=== PATIENT | female | born 1975 ===

== ENCOUNTER 2018-07-20 13:30 | Inpatient (IN) | payer OTHER ==
[~2018-07-20 13:30] MED LIST: HEMATRON P.O.1 UDTAB PO; YAZ 28 TABLET1 TAB PO
[2018-07-28] MEDS ORDERED: PROFERRIN-FORT1 EACH PO (09:58)
[2018-07-28] MEDS ORDERED: ESTARYLLA1 EACH PO (09:58)
[2018-07-31] MEDS ORDERED: Tylenol #3 PO (12:58)
== END 2018-07-31 13:26 | DRG 743 ==
LOC: OB/GYN 07-28 06:00 → O/R 07-28 06:00 → OB/GYN 07-28 13:15 → SURH 07-28 13:30 → OB/GYN 07-31 13:26
PROVIDERS: ADMIT Obstetrics & Gynecology
PROC: 0TJB8ZZ Inspection of Bladder, Via Natural or Artificial Opening Endoscopic (ICD-10-PCS; 2018-07-28)
PROC: 0UT90ZZ Resection of Uterus, Open Approach (ICD-10-PCS; principal; 2018-07-28 15:00)
DX: D25.1 Intramural leiomyoma of uterus (principal); D25.2 Subserosal leiomyoma of uterus; N73.6 Female pelvic peritoneal adhesions (postinfective); N80.0 Endometriosis of uterus; N94.5 Secondary dysmenorrhea; N81.11 Cystocele, midline

== ENCOUNTER 2018-08-09 21:48 | Emergency (ER) | payer OTHER ==
[~2018-08-09] VITALS: Ht 160 cm; Wt 63.5 kg
[~2018-08-09 21:48] MED LIST changes: +ESTARYLLA1 EACH PO; +PROFERRIN-FORT1 EACH PO; +Tylenol #3 PO
[2018-08-10] MEDS ORDERED: NORFLEX100MG PO (02:55)
[2018-08-10] MEDS ORDERED: CEPHALEXIN500 M1 PO (02:55)
[2018-08-10] MEDS ORDERED: KETO10TA2 PO (02:55)
== END 2018-08-10 03:08 | disposition home or self-care (01) ==
LOC: ER 21:48
DX: M62.838 Other muscle spasm (principal); R50.9 Fever, unspecified

== ENCOUNTER 2020-09-26 13:54 | Emergency (ER) | payer OTHER ==
[~2020-09-26] VITALS: Ht 160 cm; Wt 68.0 kg
[~2020-09-26 13:54] MED LIST changes: +CEPHALEXIN500 M1 PO; +KETO10TA2 PO; +NORFLEX100MG PO
[2020-09-26] MEDS ORDERED: SYNTHROID50 MCG PO (15:14)
== END 2020-09-26 21:02 | disposition home or self-care (01) ==
LOC: ER 13:54
DX: E03.8 Other specified hypothyroidism (principal); R42 Dizziness and giddiness; N39.0 Urinary tract infection, site not specified